=== PATIENT | male | born 1965 | race Two or more races ===

== ENCOUNTER 2024-02-24 02:59 | Emergency (ER) | payer SELFPAY ==
--- NOTE | 2024-02-24 03:00 | PC.NURSE ---
PATIENT RADHA FROM HOME IN CARDIAC ARREST, EMS AND FIRE PERFORMING CPR. ROMA IO'S TO BOTH ANKLES. WITH IVF'S INFUSING INTO LEFT IO. PATIENT PLACED ONTO MONITOR, REMAINS ASYSTOLE WITH NO PULSE. BLOODY EXCRETIONS SUCTIONED FROM PATIENTS MOUTH. AT BEDSIDE ALONG WITH CODE TEAM.
--- NOTE | 2024-02-24 03:00 | PD.EDCPR ---
ED CPR RME/HPI General Chief Complaint: Cardiac Arrest/CPR Stated Complaint: CODE BLUE Time Seen by Provider: 02/24/24 03:29 RME / HPI RME / HPI narrative: Dr. Wallis's Main ED Evaluation: 58yo male RADHA from home presents to the ED with CPR actively in progress. Patient was seen by me immediately upon arrival at 0257. Per EMS, blood sugar was 33 and patient was given D10. EMS notes the patient was originally PEA until he went asystole 10 minutes [employer] (has been down 30 minutes [employer]). EMS administered 6 doses of epinephrine. EMS states the patient is a heavy drinker, otherwise, PMHx is unknown. Full ROS is unobtainable due to the patient's medical condition. Related Data Previous Rx's ?Medication ?Instructions ?Recorded ciprofloxacin HCl 500 mg tablet 500 mg PO BID #14 tabs 05/04/22 (Cipro) Allergies Allergy/AdvReac Type Severity Reaction Status Date / Time No Known Allergies Allergy Verified 05/04/22 10:57 Review of Systems Review of Systems ROS Unobtainable: unobtainable due to medical condition Past Medical History Past Medical History CARDIAC: Negative Congestive Heart Failure RESPIRATORY: Negative Chronic Obstructive Pulmonary Disease (COPD) GENITOURINARY: Negative Renal Disease ENDOCRINE: Negative Diabetes Mellitus Type 1 or Diabetes Mellitus Type 2 Social History SMOKING STATUS: Unknown if ever smoked ED Exam General General appearance: Present other (unresponsive) Head Head exam: Present atraumatic ENT ENT exam: Present other (blood coming out of his nose) Respiratory Respiratory exam: Present other (no spontaneous breathing) Cardiovascular Cardiovascular exam: Present other (no pulses) Abdominal Exam Abdominal exam: Present distention Extremities Exam Extremities exam: Present other (I/O to the left and right medial ankles; no spontaneous movements) Neurological Exam Neurological exam: Present other (unresponsive) Skin Skin exam: Present pallor Course Course Course Narrative: 0307: Patient is intubated. Epinephrine, Bicarb, Dextrose, and Calcium without any return of pulses. Patient remained asystole of two different leads. Patient at 0312. 0317: Spoke with the patient's sister, who states the patient looked very pale and unwell earlier tonight, but had told her he did not want to come into the hospital. She states the patient was receiving follow-up with a liver specialist in [place], but refused to stop drinking. Quality Measures none Procedures -ED Intubation Time out performed: No Laryngoscope: Justin Assist Device Used: Bougie ET Tube Size: 7.5 ET Tube Uncuffed: No Tube Secured Depth (cm): 23 Tube Secured Location: teeth Tube Placement Confirmation: visualized tube passing through cords, equal breath sounds bilaterally, no breath sounds over epigastrium and confirmation by capnometry Intubation Complications: difficult intubation (succeeded with intubation on the second try) Additional Comments: OG tube was placed and noted to have blood coming out of it. Cardiac Arrest / CPR Patient data External records reviewed:: [facility] previous records (Per chart review, patient was seen here on 01/23/23 for alcohol intoxication.) Clinical information provided by:: EMS Social determinants that could affect healthcare access:: alcohol use Patient has the following chronic illnesses:: DM, cirrhosis How is presenting disease/condition affected by chronic disease/condition?: uneffected by Evaluation data The following diagnostics were reviewed and interpreted by me:: other (specify) (none) Lab and/or radiology exams considered but not ordered:: none Interpretation Summary: none Medications / Prescriptions Medications or Prescriptions considered but not ordered:: none Medication administrations:: See code sheet for medication details. Consultations Consultation(s) initiated? (list below): No Diagnosis Cardiac arrest differential diagnosis: other (variceal bleed, PEA arrest, pneumothorax, acidosis, sepsis, cardiac tamponade, PE) Most likely diagnosis given after review of the tests above:: see below Admission Indicated Admission indicated?: not indicated Admission Request Was there a request for admission?: No Disposition Plan Disposition Plan: other (specify) (Patient .) Discharge Plan Plan Patient Disposition: Patient condition on transfer: Benefits outweigh risks Prescriptions/Referrals Referrals: Juan Velasco MD [Primary Care Provider] - In 1 week Problem List Clinical Impression: Asystole Patient/Caregiver Discharge Instructions Print Language: Romanian
[2024-02-24 03:20] VITALS: PULSE 0
--- NOTE | 2024-02-24 03:28 | PC.NURSE ---
SPOKE TO LEON AT [employer], [facility]# [phone]
--- NOTE | 2024-02-24 04:00 | PC.NURSE ---
SISTER AT BEDSIDE, REQUESTING RESIDENT DOCTOR. ARRIVAL SHOULD BE IN 10 MINUTES.
--- NOTE | 2024-02-24 04:03 | PC.NURSE ---
Deacon Yu contacted for prayer visit per family request.
--- NOTE | 2024-02-24 04:45 | PC.NURSE ---
SPOKE TO SHEILA FROM [employer], STATED THAT PATIENT WAS ELIGIBLE TO DONATE TISSUE SO THEY WOULD CONTINUE TO FOLLOW UP. [facility]# [phone]
== END 2024-02-24 06:24 | disposition expired ==
PROVIDERS: Emergency Provider Emergency Medicine; PCP Family Medicine
DX: I46.9 Cardiac arrest, cause unspecified (principal)
CPT/HCPCS: 93005; 99285; J0171